=== PATIENT | male | born 1960 | race Caucasian/White ===

== ENCOUNTER 2019-12-26 13:39 | Day surgery (SDC) | payer OTHER ==
[2019-12-26 14:05] VITALS: RESP 16
[2019-12-26] MEDS ORDERED: LIDOCAINE 1% (10MG/ML) FOR IV START INTRADERMA ONE (14:20)
[2019-12-26] MEDS ORDERED: DEXAMETHASONE SOD PHOSPHATE 10 MG/ML 1 ML VIAL IV ONE (14:20)
[2019-12-26] MEDS ORDERED: ONDANSETRON 4 MG/2 ML VIAL IVP ONE (14:20)
[2019-12-26] MEDS ORDERED: ONDANSETRON 4 MG/2 ML VIAL ONE (14:33)
[2019-12-26] MEDS ORDERED: LACTATED RINGERS 1,000 ML IV ONE ×3 (14:35→20:44)
[2019-12-26] MEDS ORDERED: PHENYLEPHRINE-0.9% NACL SYG 1 MG/10 ML SYRINGE ONE (19:30)
[2019-12-26] MEDS ORDERED: LIDOCAINE 1% INJ 10MG/ML (20 ML MDV) ONE (19:30)
[2019-12-26] MEDS ORDERED: fentaNYL (PF) 50 MCG/ML 2 ML AMP ONE (19:30)
[2019-12-26] MEDS ORDERED: PROPOFOL 10 MG/ML 20 ML VIAL IV ONE (19:30)
[2019-12-26] MEDS ORDERED: MIDAZOLAM 2 MG/2 ML VIAL ONE (19:30)
[2019-12-26] MEDS ORDERED: LIDOCAINE 1%-EPI 1:100,000 20 ML VIAL SQ ONE (19:50)
[2019-12-27 00:39] VITALS: BP 141/72; PULSE 90; TEMP 97.9
--- NOTE | 2019-12-27 07:22 | XR ---
Fluoroscopy History: ORIF LT 2-4 metacarpal. ORIF LT 2-4 metacarpals. 2.[address] Moreno
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
== END 2019-12-27 01:20 | disposition home or self-care (01) ==
LOC: OR 13:39 → 1SOBS 22:07 → OR 12-27 01:20
PROVIDERS: ATTEND Orthopaedic Surgery
DX: S67.22XA Crushing injury of left hand, initial encounter (principal); S62.351B Nondisplaced fracture of shaft of second metacarpal bone, left hand, initial encounter for open fracture; S62.321B Displaced fracture of shaft of second metacarpal bone, left hand, initial encounter for open fracture; S62.333B Displaced fracture of neck of third metacarpal bone, left hand, initial encounter for open fracture; W23.0XXA Caught, crushed, jammed, or pinched between moving objects, initial encounter; M19.042 Primary osteoarthritis, left hand; I10 Essential (primary) hypertension; Z97.3 Presence of spectacles and contact lenses; Z79.899 Other long term (current) drug therapy
CPT/HCPCS: 82306; 73130; 26615 ×3; 11012; C1713; J2250; J1100; J2405; J2001; J3010; J2370; J2704